=== PATIENT | female | born 1945 | race Caucasian/White ===

== ENCOUNTER 2022-12-24 08:25 | Outpatient (CLI) | payer MEDICARE, BC | END 2022-12-24 23:59 | disposition home or self-care (01) | LOC: RAD 08:25 | PROVIDERS: ATTEND Family Medicine | DX: M47.812 Spondylosis without myelopathy or radiculopathy, cervical region (principal); M50.23 Other cervical disc displacement, cervicothoracic region; M43.22 Fusion of spine, cervical region; R51.9 Headache, unspecified | CPT/HCPCS: 72141 ==

== ENCOUNTER 2025-04-18 08:25 | Outpatient (CLI) | payer MEDICARE, BC ==
[2025-04-18] MEDS ORDERED: GADOTERATE MEGLUMINE 7.5 MMOL/15 ML VIAL IV ONE (13:57)
--- NOTE | 2025-04-18 14:07 | RADIOLOGY REPORT ---
PROCEDURE: MR MRI HEAD INDICATION: CHRONIC PAROXYSMAL HEMICRANIA EXAM DATE: 04/18/2025 09:02 AM COMPARISON: None TECHNIQUE: MRI of the brain with and without 15 cc clariscan intravenous contrast. FINDINGS: Metallic artifact related to cervical spine hardware. Diffusion weighted images of the brain demonstrate no evidence of acute infarction. There is no evidence of acute intracranial hemorrhage, extra-axial collection, mass effect, midline s hift, herniation or hydrocephalus. Mild cerebral atrophy. Mild changes of chronic microvascular ischemic disease. No abnormal enhancement. There are no signal abnormalities on the susceptibility weighted sequences. The major vascular flow voids are present. The visualized paranasal sinuses and mastoid air cells are clear. The surrounding soft tissues and o sseous structures are unremarkable. IMPRESSION: 1. No evidence of acute infarction, intracranial hemorrhage, mass effect or hydrocephalus. Mild cereb ral atrophy. Mild changes of chronic microvascular ischemic disease. No abnormal enhancement. HS:Y
== END 2025-04-18 23:59 | disposition home or self-care (01) ==
LOC: MRI 08:25
PROVIDERS: ATTEND Family Medicine
DX: I67.89 Other cerebrovascular disease (principal); G44.041 Chronic paroxysmal hemicrania, intractable; G31.9 Degenerative disease of nervous system, unspecified
CPT/HCPCS: 70553; A9575